=== PATIENT | female | born 1985 | race Hispanic/Latino ===

== ENCOUNTER 2016-06-07 21:42 | Emergency (ER) | payer OTHER ==
[2016-06-07 22:40] VITALS: TEMP 98.6
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
[2016-06-08 01:15] VITALS: BP 115/73; PULSE 70; RESP 18; O2SAT 100
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
== END 2016-06-08 00:45 | disposition home or self-care (01) ==
LOC: ED 21:42
DX: S13.9XXA Sprain of joints and ligaments of unspecified parts of neck, initial encounter (principal); V49.49XA Driver injured in collision with other motor vehicles in traffic accident, initial encounter; Y92.410 Unspecified street and highway as the place of occurrence of the external cause; R51 Headache